=== PATIENT | male | born 1970 | race Caucasian/White ===

== ENCOUNTER 2016-09-12 05:53 | Day surgery (SDC) | payer BC, MEDICARE ==
[2016-09-09 22:11] LABS: BASOPHILS 0.9 %; BASOPHILS ABSOLUTE 0.03 10/3/uL (0.0-0.16); EOSINOPHILS 7.5 %; EOSINOPHILS ABSOLUTE 0.24 10/3/uL (0.0-0.53); HEMOGLOBIN 13.5 g/dL (13.6-17.8); IMMATURE GRANULOCYTES 0.6 %; IMMATURE GRANULOCYTES ABSOLUTE 0.02 10/3/uL (0.0-0.11); LYMPHOCYTES 16.2 %; LYMPHOCYTES ABSOLUTE 0.52 10/3/uL (0.67-4.30); MEAN CORPUS HGB CONC 32.1 g/dL (32.0-36.0); MEAN CORPUSCULAR HEMOGLOB 28.8 pg (26.0-34.0); MEAN CORPUSCULAR VOLUME 89.8 fL (80-100); MEAN PLATELET VOLUME 11.2 fL (9.2-13.0); MONOCYTES 11.5 %; MONOCYTES ABSOLUTE 0.37 10/3/uL (0.21-1.20); NEUTROPHILS 63.3 %; NEUTROPHILS ABSOLUTE 2.03 10/3/uL (2.02-8.40); RED CELL COUNT 4.69 10/6/uL (4.7-6.1)
[2016-09-09 22:12] LABS: HEMATOCRIT 42.1 % (40.0-51.0); MANUAL DIFF NO %; PLATELET COUNT 141 10/3/uL (150-400); WHITE BLOOD CELLS 3.2 10/3/uL (4.5-10.5)
[2016-09-09 22:22] LABS: BUN (BLOOD UREA NITROGEN) 14 MG/DL (6-23); CALCIUM, SERUM 9.3 MG/DL (8.5-10.4); CHLORIDE, SERUM 103 MMOL/L (96-112); CREATININE 1.49 MG/DL (0.70-1.30); GFR AFRICAN AMERICAN 65 ML/MIN (>=60); GFR NON AFRICAN AMERICAN 56 ML/MIN (>=60); GLUCOSE, SERUM 92 MG/DL (60-99); POTASSIUM, SERUM 4.3 MMOL/L (3.5-5.3); SODIUM, SERUM 140 MMOL/L (135-148)
[2016-09-09 22:24] LABS: CO2 (CARBON DIOXIDE) 28 MMOL/L (24-34)
--- NOTE | ~2016-09-12 | OP ---
Record Of Operation [facility] [address] [place]. [address] NAME: DARYL WATSON : 72 STATUS : [facility] PAT#: [id number] AGE: 46 ADM/REG DATE : 09/12/16 MR#: [id number] REPORT SERV DATE: 09/13/16 DICTATED BY: ROB AGEE DATE: 09/13/16 REPORT STATUS : Draft TRANSCRIBED BY: MODL DATE: 09/13/16 DATE OF PROCEDURE: 09/12/2016 PREOPERATIVE DIAGNOSIS: Bilateral chronic otitis media and chronic rhinosinusitis. POSTOPERATIVE DIAGNOSES: Bilateral chronic otitis media and chronic rhinosinusitis. PROCEDURE PERFORMED: 1. Bilateral endoscopic frontal sinusotomies. 2. Bilateral endoscopic ethmoidectomy. 3. Bilateral inferior turbinoplasty. 4. Bilateral maxillary antrostomies with tissue removal. 5. Bilateral sphenoidotomy. 6. Stereotactic surgical navigation. INDICATIONS AND SIGNIFICANT HISTORY: The patient is a 46-year-old male with a significant history of autoimmune disease, who has been unable to use immunosuppression secondary to severe chronic rhinosinusitis. Actually, my initial impression was that of the autoimmune disease within the nose such as Patricia's granulomatosis; however, as bilateral nasal cavities have been severely caked and crusted with dried purulent secretions. The patient upon imaging was found to have extensive pansinusitis and despite antibiotic therapy and was felt to benefit from surgical therapy. OPERATIVE PROCEDURE AND FINDINGS: After informed consent was obtained, the patient was brought to the operating room, and placed on the operating table in a supine position, at which point general endotracheal anesthesia was induced by Anesthesia Service and the stereotactic surgical navigation equipment was set up to ensure extent of dissection and identification of landmarks. Attention was turned toward the right nasal cavity first, where both the right and left nasal cavities had to be debrided of caked, thick mucus present in bilateral nasal cavities. Once removed, it was noted there were multiple adhesions from the turbinate to the lateral nasal sidewall. The [place] elevator was used to elevate the middle turbinate on the right side and displaced it medially, this exposed the ethmoid bulla. The ethmoid bulla was entered first using a J-curette and opened from anteriorly to posteriorly using the J-curette and then taken from posteriorly to anteriorly using a 45-degree James-Cut forceps. A suction shaver was used to remove bits of mucosa and debride throughout this area. There was noted to be extensive purulent secretions, both older purulent secretions and newer shireen pus emanating from all of the ethmoid sinuses open. Also, right maxillary antrostomy was performed on the right side using a sickle knife and suction shaver to express copious purulent secretions from the right maxillary sinus. Next, the sphenoid rostrum was identified and was entered in the inferior medial portion of Shanon's box, and the sphenoidotomy was enlarged using a suction shaver as well as a 45- degree James-Cut forceps. Heavy purulent secretions were noted in the right sphenoid sinus as well. Cultures were taken of these purulent secretions. Next, attention was turned toward the frontal recess, where frontal recess was identified using a guided seeker probe, and a frontal sinusotomy was performed initially by removing agger nasi cell and then advancing a lighted guidewire into the frontal sinus on the right side and inflating serially upon Record Of Operation [address] [address] NAME: DARYL WATSON : 72 STATUS : [facility] PAT#: [id number] AGE: 46 ADM/REG DATE : 09/12/16 MR#: [id number] REPORT SERV DATE: 09/13/16 DICTATED BY: ROB AGEE DATE: 09/13/16 REPORT STATUS : Draft TRANSCRIBED BY: ADILSON DATE: 09/13/16 withdrawal. Purulent secretions actually continued to emanate from the right frontal recess after it was opened. The ethmoid bed was then packed with Afrin-soaked pledgets, and the attention was turned toward the left nasal cavity. The left nasal cavity had a very similar appearance with multiple adhesions from the turbinate over to the lateral nasal sidewall. These were opened or released, turbinate was medialized, and at this point, ethmoidectomy, maxillary antrostomy, sphenoidotomy, and finally frontal sinusotomies were all performed. The only positive thing encountered on the left side was copious purulent secretions in the left maxillary sinus. Attention was then turned toward inferior turbinoplasty. The head of the inferior turbinates were pierced with a suction shaver, and submucous resection was performed. The inferior turbinates were then medialized and then lateralized using a [place] septal displacer. All cottonoid pledgets were removed from the right and left nasal cavities. PROPEL sinus stents, regular size, were then deployed into the ethmoid beds bilaterally. The patient was then turned back toward anesthesia, aroused from anesthesia, and taken to the postanesthesia care unit in satisfactory condition. COMPLICATIONS: None. ESTIMATED BLOOD LOSS: Less than 100 mL. IV FLUIDS: Per Anesthesia. MARII/ADILSON Rob Agee M.D. / [id number]
[~2016-09-12 05:53] MED LIST: AMOXIL875 PO; AUG500 PO; AUG875 PO; DOLOPHINE10 MG PO; HUMIR1 SC; INDO50 PO; INDO50SUPP PO; LYRICA150 MG PO; PHEN50TAB PO; RESTORIL30 MG PO; ROXICODONE30 MG PO; ZANAFLEX 4 MG TA4 MG PO
[2016-09-17 08:34] LABS: INTERNATIONAL NORMAL RATI 1.1 UNITS (-); PARTIAL THROMBO TIME 33.7 SEC (22.5-37.2); PROTIME (NOT ORD) 13.6 SEC (12.0-14.5)
== END 2016-09-12 13:37 | disposition home or self-care (01) ==
LOC: SDC 05:53
PROVIDERS: Otolaryngology
PROC: 099R4ZZ Drainage of Left Maxillary Sinus, Percutaneous Endoscopic Approach (ICD-10-PCS; 2016-09-12)
PROC: 099Q4ZZ Drainage of Right Maxillary Sinus, Percutaneous Endoscopic Approach (ICD-10-PCS; 2016-09-12)
PROC: 09BL8ZZ Excision of Nasal Turbinate, Via Natural or Artificial Opening Endoscopic (ICD-10-PCS; 2016-09-12)
PROC: 09BT4ZZ Excision of Left Frontal Sinus, Percutaneous Endoscopic Approach (ICD-10-PCS; principal; 2016-09-12 07:30)
PROC: 09BV4ZZ Excision of Left Ethmoid Sinus, Percutaneous Endoscopic Approach (ICD-10-PCS; 2016-09-12 07:30)
PROC: 09BU4ZZ Excision of Right Ethmoid Sinus, Percutaneous Endoscopic Approach (ICD-10-PCS; 2016-09-12 07:30)
DX: J32.9 Chronic sinusitis, unspecified (principal); Z87.891 Personal history of nicotine dependence; G47.33 Obstructive sleep apnea (adult) (pediatric); D86.9 Sarcoidosis, unspecified; Z88.5 Allergy status to narcotic agent; Z88.8 Allergy status to other drugs, medicaments and biological substances; Z79.899 Other long term (current) drug therapy; G43.909 Migraine, unspecified, not intractable, without status migrainosus; Z87.01 Personal history of pneumonia (recurrent); L40.50 Arthropathic psoriasis, unspecified; Z98.890 Other specified postprocedural states; Z87.442 Personal history of urinary calculi
CPT/HCPCS: 36415; 80048; 85025; 85610; 85730; 87015; 87070; 87075; 87077; 87102; 87116; 87186; 87205; 88305; 88312; 93005; A9270-GY; C1726; J0330; J0461; J2250; J2370; J2405; J3010